=== PATIENT | male | born 1960 | race African-American/Black ===

== ENCOUNTER 2023-04-26 23:06 | Emergency (ER) | payer OTHER, SELFPAY ==
[2023-04-26 23:09] VITALS: BP 112/92; PULSE 102; RESP 14; TEMP 36.4; O2SAT 99
[2023-04-26 23:56] VITALS: PULSE 96; RESP 24; O2SAT 99
[2023-04-27] VITALS (8 sets, daily range): PULSE 80–93; RESP 16–20; O2SAT 99–100
--- NOTE | 2023-04-27 00:01 | ED.GENADULT ---
HPI - General Adult General Chief complaint: Abdominal Pain Stated complaint: stomach ulcers Time Seen by Provider: 04/26/23 23:54 Source: patient Mode of arrival: ambulatory Limitations: no limitations History of Present Illness HPI narrative: This is a 62-year-old male who presents to the ED with chief complaint of abdominal pain x 32 years. States he has been told that he has had gastric ulcers in the past but has not been taking any antacid medications lately. Reports that the pain is epigastric and periumbilical. Described as a burning pain. It is somewhat worse today but he ?is just trying to catch it early. States he ?is not looking for any quick fixes but would like to have a cure. States he has never had a GI scope. Denies fevers, chills, chest pain, shortness of breath, vomiting, nausea, diarrhea, urinary problems, GI bleeding symptoms. Related Data Allergies Allergy/AdvReac Type Severity Reaction Status Date / Time No Known Allergies Allergy Verified 04/26/23 23:08 Review of Systems Review of Systems: All systems as dictated in HPI Exam Narrative: GENERAL: Well-appearing, well-nourished, and in no acute distress. HEAD: Normocephalic, atraumatic. EYES: PERRLA and EOMI. ENT: Nares clear, no rhinorrhea or epistaxis. Mucous membranes moist. Oropharynx without tonsillar hypertrophy exudate or other lesions. NECK: Supple. No adenopathy or masses. CHEST: No respiratory distress. Clear to auscultation. No wheezes rales or rhonchi HEART: Regular rate and rhythm. No murmur heard. Normal peripheral pulses. ABDOMEN: Soft, nontender, nondistended, normal active bowel sounds. MSK: Normal range of motion. No edema. SKIN: Warm, dry, no rash. NEURO: Alert and oriented x3. No focal deficits. PSYCH: Normal mood and affect. Course Course Emergency Course: Re-evaluation at 2:03 a.m.: Patient feeling improved. IV has been removed but states he did not pull it. He is ready to go. Abdominal exam remains benign Vital Signs Vital signs: Vital Signs Temperature 97.6 F 04/26/23 23:09 Pulse Rate 102 H 04/26/23 23:09 Respiratory Rate 14 04/26/23 23:09 Blood Pressure 112/92 H 04/26/23 23:09 Pulse Oximetry 99 04/26/23 23:09 Oxygen Delivery Room Air 04/26/23 23:09 Temperature 97.6 F 04/26/23 23:09 Pulse Rate 89 04/27/23 02:01 Respiratory Rate 16 04/27/23 02:01 Blood Pressure 112/92 H 04/26/23 23:09 Pulse Oximetry 100 04/27/23 01:15 Oxygen Delivery Room Air 04/26/23 23:09 Medical Decision Making MDM Narrative Medical decision making narrative: This is a 62-year-old male presents to the ED with chief complaint chronic abdominal pain. Has been told about gastric ulcers in the past. Vitals are normal. Exam is benign. No evidence of acute abdomen. Laboratory workup is unremarkable. Negative lipase. A CBC shows normal white count he does have some slight anemia. He does not have any GI bleeding symptoms. Urinalysis negative. He improved with famotidine, GI cocktail and fluids. During the course of his stay he was found to ahve IV removed. prior to discharge he made threatening remarks to the RNs because ?the IV was not put and right.? Discharged in stable condition. GI referral given. omeprazole rx Vital Signs Vital Signs: Vital Signs Temperature 97.6 F 04/26/23 23:09 Pulse Rate 102 H 04/26/23 23:09 Respiratory Rate 14 04/26/23 23:09 Blood Pressure 112/92 H 04/26/23 23:09 Pulse Oximetry 99 04/26/23 23:09 Oxygen Delivery Room Air 04/26/23 23:09 Temperature 97.6 F 04/26/23 23:09 Pulse Rate 89 04/27/23 02:01 Respiratory Rate 16 04/27/23 02:01 Blood Pressure 112/92 H 04/26/23 23:09 Pulse Oximetry 100 04/27/23 01:15 Oxygen Delivery Room Air 04/26/23 23:09 Lab Data 04/27/23 01:04 04/27/23 01:04 Labs: Lab Results 04/27/23 04/27/23 Range/Units 00:31 01:04 WBC 6.5 (4.5-10.0) K
[2023-04-27 00:43] LABS: Appearance Urine Clear (Clear); Bilirubin Urine Negative (Negative); Blood Urine Negative (Negative); Color Urine Yellow (Yellow); Glucose Urine UA Negative (Negative); Ketones Urine Negative (Negative); Leukocyte Esterase Ur Negative LEU/UL (Negative); Nitrate Urine Negative (Negative); Protein Urine Negative (Negative); Specific Grav Ur 1.014 (1.001-1.035); Urobilinogen Urine 0.2 mg/dL (<2.0); pH Urine 7.5 (5.0-9.0)
[2023-04-27] MEDS: SODIUM CHLORIDE 0.9% IV 2,000 ML 999 ML IV CONT (00:59)
[2023-04-27] MEDS: FAMOTIDINE 20 MG/2 ML VIAL IV PUSH (01:00)
[2023-04-27 01:13] LABS: Basophils Percent Auto 0.6 % (0.2-1.2); Eosinophils Absolute Auto 0.2 K/mm3 (0-0.3); Eosinophils Percent Auto 3.1 % (0-4.4); Hematocrit 36.2 % (42.0-52.0); Hemoglobin 10.8 g/dL (14.0-18.0); Lymphocytes Absolute Auto 3.17 K/mm3 (0.9-3.2); Lymphocytes Percent Auto 48.5 % (18.3-44.2); Mean Corpuscular HGB Conc 29.8 g/dl (32-36); Mean Corpuscular Volume 97.3 fl (80-100); Mean Platelet Volume 10.2 fl (7.4-10.4); Monocytes Absolute Auto 0.4 K/mm3 (0.1-0.6); Monocytes Percent Auto 6.3 % (2.6-8.5); Neutrophils Absolute Auto 2.7 K/mm3 (1.3-6.7); Neutrophils Percent Auto 41.5 % (45.5-73.1); Platelet Count Result 236 k/mm3 (150-375); Red Blood Count 3.72 M/mm3 (4.6-6.20); Red Cell Distribution Width 12.7 % (11.5-14.5); White Blood Count 6.5 K/mm3 (4.5-10.0)
[2023-04-27 01:15] LABS: Add Urine Microscopic? NO
[2023-04-27 01:46] LABS: Alanine Aminotransferase 27 U/L (6-50); Albumin Level 3.9 g/dL (3.5-5.1); Alkaline Phosphatase 56 U/L (38-126); Anion Gap 6 mmol/L (8-16); Aspartate Amino Transferase 35 U/L (17-59); Bilirubin,Total 0.4 mg/dL (0.2-1.3); Blood Urea Nitrogen 14 mg/dL (9-20); Calcium 8.5 mg/dL (8.4-10.2); Carbon Dioxide 30 mmol/L (22-30); Chloride 103 mmol/L (98-107); Estimated CRCL calculation 107 ml/min; Estimated Glomerular Filt Rate > 60; Glucose 107 mg/dL (65-110); Lipase 167 U/L (23-300); Potassium 4.5 mmol/L (3.4-5.0); Sodium 139 mmol/L (137-145)
[2023-04-27] MEDS: BELLADONNA ALK/PHENOB ELIX 10 ML, MAG HYDROX/ALUMINUM HYD/SIMETH 30 ML, LIDOCAINE HCL 2... PO (01:47)
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
== END 2023-04-27 02:17 | disposition home or self-care (01) ==
PROVIDERS: Emergency Provider Physician Assistant; PCP Orthopaedic Surgery Orthopaedic Trauma
DX: R10.13 Epigastric pain (principal); R10.33 Periumbilical pain
CPT/HCPCS: 36415; 80053; 81003; 83690; 85025; 96361; 96374; 99284; A9270; J7030